=== PATIENT | male | born 1980 | race Caucasian/White ===

== ENCOUNTER 2017-10-26 04:01 | Day surgery (SDC) | payer MEDICARE, MEDICAID ==
[2017-10-26] MEDS ORDERED: cefTRIAXone\\ROCEPHIN 2 GM in Sodium Chloride 0.9% 100 ML IVPB SCH (06:00)
[2017-10-26] MEDS ORDERED: Fentanyl 100 MCG/2 ML VIAL ONE ×2 (06:06)
[2017-10-26] MEDS ORDERED: Iothalamate Meglumine 60% 50 ML VIAL FS ONE (06:40)
[2017-10-26] MEDS ORDERED: Ioversol 68 % 50 ML VIAL ONE (06:46)
--- NOTE | 2017-10-26 07:07 | CON ---
DATE OF CONSULTATION: 10/26/2017 REASON FOR CONSULT: Foreign body in penis, self-inflicted. HISTORY OF PRESENT ILLNESS: Mr. Cheema is a 37-year-old male with history of schizophrenia, history of self injuries, multiple, suicidal behavior who lives in [facility]. He presented to [facility] emergency room due to symptoms of dysuria. Upon talking to the mother via the phone, patient has recurrent behavior of attention seeking of foreign body insertion. He has previous history of swallowing multiple trash bags, which required endoscopic removal back in 03/2017. The patient himself states that he has put foreign bodies in his penis on multiple occasions. He states that this is the 7th time and has been treated in the past in the [facility]. There is a history of suprapubic tube by Dr. Wilkins 3 years ago, which was subsequently removed. Per patient, he is doing this for attention seeking behavior. There is no urinary retention, patient presented with dysuria. Records review from [facility] demonstrating normal creatinine. Urinalysis demonstrates microscopic hematuria, pyuria and few bacteria; however, no nitrites. There is no history of fever, white count of 9, hemoglobin of 14. A CT of the abdomen and pelvis stone protocol was obtained at [facility], which demonstrated no hydronephrosis, no ureteral renal calculi. There is some mild bladder wall thickening. There is a linear density that extends from the bladder to the penile urethra suspicious for metallic foreign body, the distal and does extend into the bladder, which abuts the bladder mucosa; however, with no obvious perforation. There is no free fluid in the abdomen. PAST MEDICAL HISTORY: Basal cell carcinoma of the left anabaptism, which causes constipation, schizophrenia, sinus bradycardia, suicide behavior and self- inflicted injury, recurrence, hypothyroidism, hyperlipidemia. PAST SURGICAL HISTORY: Appendectomy, left inguinal hernia repair, history of suprapubic tube, history of multiple retrieval of foreign body self-inflicted into the penile urethra per patient, usually paper clips. ALLERGIES: IODINE, LATEX, MORPHINE, hives. PHYSICAL EXAMINATION:VSS ; card table attendant bedside HEENT is unremarkable GENERAL: Patient is resting comfortably, card table attendant at bedside. ABDOMEN: Soft. There is no rigidity, no rebound. GENITOURINARY: There is no foreign body extending to the meatus. There is no blood per meatus. Testes are descended. EXTREMITIES: No cyanosis, clubbing or edema. PERTINENT LABORATORY DATA: Creatinine 0.8, white count 9, hemoglobin 14, platelet 171, 100 of protein, small leukocyte, 10-19 RBCs, 10-19 WBCs, few bacteria, negative nitrites. Culture obtained from [facility] pending per my request. A CT of the abdomen and pelvis, which I reviewed myself from [facility] stone protocol, linear density extending into the bladder, foreign body from penile urethra to the bladder with no evidence of perforation. No hydroureteronephrosis. No renal lithiasis. Mild bladder wall thickening. IMPRESSION AND PLAN: Mr. Cheema is a 37-year-old male with history of schizophrenia, history of multiple self-inflicted injuries including swallowing trash bags, multiple penile urethral foreign body insertion, presents with dysuria, CT demonstrating foreign body from the bladder to the proximal penile urethra. Verbal consent obtained via mother to proceed with retrieval of foreign body. Risks and complications were reviewed with mother in detail. LU
--- NOTE | 2017-10-26 07:42 | OP ---
DATE OF PROCEDURE: 10/26/2017 PREOPERATIVE DIAGNOSES: A 37-year-old male with history of schizophrenia, history of multiple recurrent self-inflicted injuries. POSTOPERATIVE DIAGNOSES: Foreign body insertion per urethra. PROCEDURE: Cystoscopy, urethral dilation, retrieval of metallic foreign body SURGEON: Stephanie Godwin D.O. ANESTHESIA: General. COMPLICATIONS: None apparent. DISPOSITION: Recovery room in stable condition. INDICATIONS FOR THE PROCEDURE AND HISTORY: Mr. Cheema is a 37-year-old male with history of multiple self-inflicted behavior. Per mother and patient, he has done this approximately 5-7 times. This has been previously retrieved with history of multiple paper clips per his urethra in [place] in the [facility] region. He presents to [facility] due to dysuria. CT demonstrated a foreign body traversing the penile urethra to the level of the bladder with no evidence of bladder perforation. When asked why he does this, he states that this is to seek attention. The patient not in urinary retention. Urine is pink tinged.. He is afebrile. Informed consent obtained via mother for a foreign body retrieval. DESCRIPTION OF THE PROCEDURE: After an informed consent is signed, the patient is taken to the operating room, placed in a dorsal lithotomy position with the genital area prepped and draped in the usual surgical sterile fashion. A 21- Stateless cystoscope was utilized. At the level of the distal penile urethra, there was evidence of multiple false passages consistent with his previous history. There was some resistance passing a 22 Stateless cystoscope. Therefore, I just transitioned to a 17F I was able to pass this level of the mid penile urethra; however, it was somewhat tight. I placed a 0.35 center wire to the level of the bladder confirmed on fluoroscopy. Subsequently, I dilated his urethra from 14 to 22 over the Super Stiff guidewire without difficulty. Subsequently passed a 22-Stateless cystoscope to the level of the bladder. The bladder demonstrated some irritative changes with no stones and no evidence of a bladder defect was noted. The prostatic urethra was coapting. The wire traversed from bladder to the level of the proximal penile urethra. Using a grasper, I was able to retrieve it intact atraumatically. Repeat cystoscopy performed demonstrating it was successfully retrieved with no further nidus. I did not want to leave an indwelling Vanegas catheter in this patient, as he will most likely pull it out. With the working wire removed, I was able to pass a 16 Stateless coude without any resistance. Bladder was completely emptied. He tolerated the procedure well. He will be discharged with a course of antibiotic therapy. I will inform mother. LU
[2017-10-26] MEDS ORDERED: Meperidine HCl/PF 25 MG/ML VIAL ONE (07:48)
[2017-10-26] MEDS ORDERED: Phenazopyridine HCl 97.5 MG TABLET ONE (07:49)
--- NOTE | 2017-10-26 07:59 | RAD ---
RETROGRADE IVP: Date: 10/26/17 HISTORY: Foreign body removal. FINDINGS/IMPRESSION: Anterior views of the abdomen were submitted for interpretation. These are limited fluoroscopic views . The first image shows a linear radiopaque foreign body overlying the pelvis, which is not seen on t he second radiograph. POS: [facility]
[2017-10-26] MEDS ORDERED: Propofol 200 MG/20 ML VIAL ONE (13:42)
[2017-10-26] MEDS ORDERED: Succinylcholine Chloride 20 MG/ML 10 ml SYRINGE FS ONE (13:42)
[2017-10-26] MEDS ORDERED: Lidocaine 1% PF 5 ML VIAL ONE (13:42)
[2017-10-26] MEDS ORDERED: Ondansetron HCl/PF 4 MG/2 ML Vial ONE (13:42)
[2017-10-26] MEDS ORDERED: ePHEDrine/0.9% NaCl/PF SYRINGE 50 mg/10 ml ONE (13:42)
[2017-10-26] MEDS ORDERED: Dexamethasone 20 MG/5 ML VIAL ONE (13:42)
[2017-10-26] MEDS ORDERED: Glycopyrrolate 0.2 MG/ML 5 ML SYRINGE ONE (13:42)
== END 2017-10-26 10:45 | disposition home or self-care (01) ==
LOC: ERS 04:01 → SDC/OP 06:30
PROVIDERS: ATTEND Urology
PROC: 0TCD8ZZ Extirpation of Matter from Urethra, Via Natural or Artificial Opening Endoscopic (ICD-10-PCS; principal; 2017-10-26)
DX: T19.0XXA Foreign body in urethra, initial encounter (principal); Z91.5 Personal history of self-harm; E03.9 Hypothyroidism, unspecified; E78.5 Hyperlipidemia, unspecified; C44.319 Basal cell carcinoma of skin of other parts of face; K59.00 Constipation, unspecified; J45.909 Unspecified asthma, uncomplicated; Z88.5 Allergy status to narcotic agent; Z91.041 Radiographic dye allergy status; Z91.040 Latex allergy status; Z88.8 Allergy status to other drugs, medicaments and biological substances; Z90.49 Acquired absence of other specified parts of digestive tract; Z98.890 Other specified postprocedural states; Z87.891 Personal history of nicotine dependence
CPT/HCPCS: 52310; 74420; 88300; 96374; C1758; C1769; J0696; J1100; J2001; J2175; J2405; J2704; J3010; J7050; Q9961; Q9967

== ENCOUNTER 2017-11-10 03:25 | Emergency (ER) | payer MEDICARE, MEDICAID ==
[2017-11-10 04:30] LABS: #Basophils 0.1 thou/uL (0.0-0.2); #Eosinphils 0.2 thou/uL (0.0-0.7); #Lymphocytes 2.1 thou/uL (1.20-3.40); #Monocytes 0.8 thou/uL (0.11-0.59); #Neutrophils 4.9 thou/uL (1.40-6.50); %Basophils 0.8 % (0.0-1.0); %Eosinophils 1.9 % (0.0-10.0); %Lymphocytes 25.9 % (21.0-51.0); %Monocytes 9.6 % (0.0-10.0); %Neutrophils 61.9 % (42.0-75.0); Hemoglobin 14.9 g/dL (14.0-18.0); Mean Corpuscular HGB CONC 35.1 g/dL (32.0-36.0); Mean Corpuscular Hemoglobin 31.9 pg (27.0-31.0); Mean Corpuscular Volume 90.8 fl (80.0-94.0); Mean Platelet Volume 7.8 fL (7.4-10.4); Platelet Count 199 thou/uL (130-400); RBC Distribution Width 11.7 % (11.5-14.5); Red Blood Cell (RBC) Count 4.68 mill/uL (4.70-6.10); White Blood Cell (WBC) Count 7.9 thou/uL (4.8-10.8)
[2017-11-10 04:37] LABS: INR-International Normal Ratio 1.1; Prothrombin Time 14.1 SEC (12.0-14.7)
[2017-11-10] MEDS ORDERED: Adacel (T-DAP) 0.5 ML VIAL ONE (06:32)
--- NOTE | 2017-11-10 07:43 | RAD ---
SINGLE VIEW OF THE ABDOMEN: COMPARISON: None. HISTORY: Urethral foreign body. FINDINGS: A single view of the abdomen shows a nonspecific, nonobstructed bowel gas pattern. No radiopaque for eign body is seen in the abdomen or in the penis. The bones are unremarkable. IMPRESSION: Unremarkable exam. POS: [facility]
--- NOTE | 2017-11-10 08:05 | CT ---
PRELIMINARY REPORT/[facility]/EMERGENCY AFTER HOURS PROCEDURE: EXAM: CT Abdomen and Pelvis Without Intravenous Contrast EXAM DATE/TIME: Exam ordered 11/10/2017 5:18 AM CLINICAL HISTORY: 37 years old, male; Pain; Abdominal pain; Localized; Lower; Prior surgery; Patient HX: Pt is a 37 yea r old male with a history of schizophrenia, self-injurious behavior and recent surgery for urethral f oreign body removal. Pt states that early this morning, he placed multiple small wires into his ureth ra. Pt states that he does this "for pleasure". TECHNIQUE: Axial computed tomography images of the abdomen and pelvis without intravenous contrast. Coronal reformatted images were created and reviewed. COMPARISON: No relevant prior studies available. FINDINGS: Lower thorax: There is subpleural atelectasis of the dependent portions of the lungs. ABDOMEN: Liver: The liver is within normal limits for this noncontrast study. Gallbladder and bile ducts: The gallbladder is normal. There is no evidence of biliary ductal dilatio n. No calcified stones. Pancreas: The pancreas appears normal. No ductal dilation. Spleen: The spleen is normal. Adrenals: The adrenal glands are normal. Kidneys and ureters: The kidneys appear normal. No obstructing stones. No hydronephrosis. Stomach and bowel: The stomach is normal. The duodenum is unremarkable. There is moderate colonic constipation. No obstruction. No mucosal thickening. Appendix: There has been an appendectomy. PELVIS: Bladder: No urethral foreign bodies are identified at this time. The bladder is normal. No stones. Reproductive: Unremarkable as visualized. ABDOMEN and PELVIS: Intraperitoneal space: Normal. No free air. No significant fluid collection. Bones/joints: No acute fracture. No dislocation. Soft tissues: Normal. Vasculature: Normal. No abdominal aortic aneurysm. Lymph nodes: Normal. No enlarged lymph nodes. IMPRESSION: No urethral foreign bodies are identified at this time. Thank you for allowing us to participate in the care of your patient. Dictated and Authenticated by: Markos Cazares MD 11/10/2017 5:47 AM Central Time ([place] & [place]) FINAL REPORT CT ABDOMEN AND PELVIS WITHOUT CONTRAST: I agree with the preliminary report given by Dr. Markos Cazares of [facility]. POS: [facility]
== END 2017-11-10 07:07 | disposition home or self-care (01) ==
LOC: ERS 03:25
DX: T19.0XXA Foreign body in urethra, initial encounter (principal); J45.909 Unspecified asthma, uncomplicated; E55.9 Vitamin D deficiency, unspecified; E78.5 Hyperlipidemia, unspecified; E03.9 Hypothyroidism, unspecified; K59.00 Constipation, unspecified; F25.9 Schizoaffective disorder, unspecified; F17.210 Nicotine dependence, cigarettes, uncomplicated
CPT/HCPCS: 36415; 74018; 74176; 85025; 85610; 86850; 86900; 86901; 90715; 93005; 99406

== ENCOUNTER 2018-09-15 05:48 | Emergency (ER) | payer MEDICARE, MEDICAID ==
[2018-09-15] MEDS ORDERED: Fentanyl 100 MCG/2 ML VIAL ONE (06:39)
[2018-09-15] MEDS ORDERED: Midazolam HCl 2 mg/2 ml Vial ONE (06:39)
[2018-09-15] MEDS ORDERED: Iothalamate Meglumine 60% 50 ML VIAL FS ONE (06:55)
[2018-09-15 07:33] LABS: Anion Gap 11 mmol/L (10-20); BUN (Urea Nitrogen) 17 mg/dL (8.9-20.6); Calc. Creatinine Clearance 0 mL/min (70-130); Calcium 10.2 mg/dL (7.8-10.44); Carbon Dioxide 30 mmol/L (22-29); Chloride 106 mmol/L (98-107); Estimated GFR-MDRD Greater than 90; Glucose 94 mg/dL (70-105); Potassium 4.3 mmol/L (3.5-5.1); Sodium 143 mmol/L (136-145)
--- NOTE | 2018-09-15 09:07 | RAD ---
TWO FLUOROSCOPIC IMAGES OF THE PELVIS CYSTOSCOPY: History: Patient with history of foreign body retrieval. FINDINGS/IMPRESSION: Provided fluoroscopic images demonstrate radiopaque catheter overlying the pelvis related to Vanegas ca theter. No radiopaque or metallic foreign bodies are seen overlying the pelvis on provided images. Co rrelation with intraoperative findings is recommended. POS: [facility]
--- NOTE | 2018-09-15 12:46 | CON ---
DATE OF CONSULTATION: 09/15/2018 HISTORY OF PRESENT ILLNESS: Mr. Cheema is a 37-year-old male with history of schizophrenia, history of multiple self-mutilating injuries resident of [facility] previously seen in September 2017, as he has a history of multiple self-destructive behavior /attention-seeking behavior by foreign body insertion. He has previously had history of swallowing trash bags, requiring endoscopic removal back in March 2017. He has on multiple occasions inserted paper clips in his urethra for attention-seeking behavior. When I saw him in September that was [facility] in [facility]. Prior history of suprapubic tube [place] [address] Wilkins. I saw the patient two months ago at [facility], which he again inserted a paper clip in urethra, which I was able to remove it at bedside. He presents this morning again inserting a paper clip in his urethra. He continues to knowledge his self mutilating behavior, for attention seeking. He is been fully informed regarding repercussions of developing stricture disease, impotence, sepsis, morbidity associated with his behavior. Despite acknowledging this behavior he continues to do so. 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 PAST MEDICAL HISTORY: Basal cell carcinoma of the mosque, history of constipation, schizophrenia, suicide behavior, self-inflicted injury recurrent, hypothyroidism , hyperlipidemia. PAST SURGICAL HISTORY: Appendectomy, left inguinal hernia repair, history of suprapubic tube, history of multiple retrieval of foreign body self-inflicted into the penile urethra, usually a paperclip. ALLERGIES: TO IODINE, LATEX, MORPHINE, CAUSING HIVES. PHYSICAL EXAMINATION: GENERAL: The patient appears to be in no acute distress. ER doctor and nurse at bedside. HEENT: Unremarkable. HEART: Regular rate. LUNGS: Clear. ABDOMEN: Soft, no rigidity, no rebound. EXTREMITIES: No cyanosis, clubbing, or edema. His penile meatus is inspected which demonstrates no blood at the meatus per se. I was able to feel the foreign body along the course of his distal penile urethra. With some manipulation, I was able to clyde the tip of the paperclip out of his meatus. Multiple viscous lidocaine was injected per urethra. However, due to a proximal coil of the paperclip, I am unable to retrieve it locally today. Hemostat was placed at the tip of the paper clip to prevent distal migration. As I am unable to retrieve this at the bedside, we will go to the OR for cysto-retrieval of foreign body. IMPRESSION AND PLAN: 1. Gerry is a 37-year-old male with self-destructive behavior, history of schizophrenia. 2. History of multiple self-inflicted destructive behavior including swallowing trash bags, multiple insertions per urethra of paperclip. As I am unable to retrieve it locally, we will proceed with OR for cysto foreign body removal. 3. Broad-spectrum antibiotics on-call to OR. A formal letter will be sent to [facility] administrator regarding his behavior, he cannot have a job that allows him access to sharp objects, office supplies which he can manipulate and enable his self-destructive behavior. Job ID: [id number] [facility]
--- NOTE | 2018-09-15 12:54 | OP ---
DATE OF PROCEDURE: 09/15/2018 PREOPERATIVE DIAGNOSES: A 37-year-old male with history of schizophrenia, history of multiple recurrent self-inflicted urethra injury with a paperclip. This is likely about his 10th time. POSTOPERATIVE DIAGNOSES: A 37-year-old male with history of schizophrenia, history of multiple recurrent self-inflicted urethra injury with a paperclip. This is likely about his 10th time. PROCEDURES PERFORMED: Cystoscopy, retrieval of foreign body, i.e., paperclip, 18-Slovenian [place] tip Vanegas catheter placement over guidewire to leg bag. ANESTHESIA: LMA. COMPLICATIONS: None apparent. DISPOSITION: To recovery room in stable condition. Specimen: Foreign body. A paperclip INDICATIONS FOR PROCEDURE AND HISTORY: Mr. Cheema is a 37-year-old male with psychiatric history as above, he has previously swallowed garbage bags requiring endoscopic removal, inserted foreign body in his rectum, and he has also, on multiple occasions, inserted a paperclip in his urethra. I had seen the patient previously at [facility] and subsequently at [facility] with retrieval of a paperclip. On his last event a few months ago, I was able to retrieve it at bedside without significant issues. On today's exam, I attempted to remove his paperclip at bedside; however, there appears to be a coil loop in the proximal portion. Therefore, I did not forcibly engage. Indications for surgical intervention were reviewed. Risks and complications and ongoing risk of impotence, recurrent stricture, urosepsis were reviewed with the patient on multiple occasions. He verbalizes understanding, however, continues to proceed with self-inflicted injury. DESCRIPTION OF PROCEDURE: After an informed consent was signed, the patient was taken to the operating room, placed in a dorsal lithotomy position with the genital area prepped and draped in the usual surgical sterile fashion. In the emergency room, I was able to see the tip of the paperclip at the meatus and thus I put a hemostat on it to prevent retraction. The genital area was formally prepped and draped and broad-spectrum antibiotics were provided. A 21-Slovenian cystoscope was utilized for cystoscopy. Although there were multiple proximal penile bulbar urethral strictures, I was able to negotiate the 21-Slovenian cystoscope without significant trauma. I was able to see the paperclip, and make my way into the bladder. A 0.035 Super Stiff wire was left in the bladder for safety access to his bladder. I then re-staged his urethra. The proximal coil of the paperclip had an angle pre-existing, which has perforated his urethra at 8 o'clock position at the level of the bulbar urethra. I attempted with a flexible grasper forceps, however, I was unable to retrieve. It was very challenging to remove this paperclip as it has hooked into his urethra. I did transition to a rigid grasper with a 12- degree lens. Multiple attempts were performed gently to remove this, however, due to the hooked portion perforating the bulbar urethra, I was unable to retrieve it. I subsequently was able to retrieve it intact as minimally traumatic as possible by compensating for the angle of the paperclip with the cystoscope and was able to subsequently remove it intact. Restaging cystoscopy demonstrated no other foreign body. Fluoroscopy was obtained demonstrating no foreign fragmented metallic clip of concern. Restaging demonstrates the perforated region at the 8 o'clock position bulbar urethra. No other perforation was seen. I did again staged his bladder demonstrating no other foreign body, which was confirmed on fluoroscopy as well. Although, I would prefer not to leave any foreign body in this patient for obvious reasons, as there was perforation of the urethra and risk of infection, possible abscess, an 18-Slovenian [place] tip Vanegas catheter was placed over guidewire, which passed without difficulty. [place] red tinged urine was noted. He was to be discharged with Levaquin 750 mg x10 days. We will arrange followup for catheter removal next Thursday. Job ID: [id number] [facility]
[2018-09-15] MEDS ORDERED: Lidocaine 1% PF 5 ML VIAL ONE (21:39)
[2018-09-15] MEDS ORDERED: Ondansetron PF 4 MG/2 ML Vial ONE (21:39)
[2018-09-15] MEDS ORDERED: Dexamethasone 20 MG/5 ML VIAL ONE (21:39)
[2018-09-15] MEDS ORDERED: PROPOFOL 200 MG/20 ML VIAL ONE (21:39)
== END 2018-09-15 06:58 | disposition admitted as inpatient to this hospital (09) ==
LOC: ERS 05:48
DX: T19.4XXA Foreign body in penis, initial encounter (principal); E03.9 Hypothyroidism, unspecified; E78.5 Hyperlipidemia, unspecified; J45.909 Unspecified asthma, uncomplicated; F25.9 Schizoaffective disorder, unspecified; F17.210 Nicotine dependence, cigarettes, uncomplicated; Z79.899 Other long term (current) drug therapy
CPT/HCPCS: 74420; 80048; 88300; 96374; 99285; C1769; 36415; J1100; J1956; J2001; J2250; J2405; J2704; J3010; Q9961

== ENCOUNTER 2022-08-04 11:20 | Day surgery (SDC) | payer MEDICARE, MEDICAID ==
[2022-07-31 09:37] VITALS: BMI 25.7
[2022-08-04] MEDS ORDERED: Midazolam HCl 2 mg/2 ml Vial ONE (12:18)
[2022-08-04] MEDS ORDERED: FENTANYL 50 MCG/ML 1 ML VIAL ONE (12:18)
[2022-08-04] MEDS ORDERED: Ondansetron PF 4 MG/2 ML Vial ONE (12:30)
[2022-08-04] MEDS ORDERED: PROPOFOL 200 MG/20 ML VIAL ONE (12:30)
[2022-08-04] MEDS ORDERED: Ketorolac Tromethamine 30 MG/ML VIAL ONE (12:30)
== END 2022-08-04 14:18 | disposition home or self-care (01) ==
LOC: MRI 11:20
PROVIDERS: ATTEND Family Medicine
DX: M43.17 Spondylolisthesis, lumbosacral region (principal); M51.37 Other intervertebral disc degeneration, lumbosacral region; M47.817 Spondylosis without myelopathy or radiculopathy, lumbosacral region; M48.07 Spinal stenosis, lumbosacral region; M51.36 Other intervertebral disc degeneration, lumbar region; M47.816 Spondylosis without myelopathy or radiculopathy, lumbar region; E78.5 Hyperlipidemia, unspecified; E03.9 Hypothyroidism, unspecified; E55.9 Vitamin D deficiency, unspecified; Z79.890 Hormone replacement therapy; Z79.899 Other long term (current) drug therapy; Z88.5 Allergy status to narcotic agent; Z88.8 Allergy status to other drugs, medicaments and biological substances; Z91.040 Latex allergy status; Z91.041 Radiographic dye allergy status
CPT/HCPCS: 72148; J1885; J2250; J2405; J2704; J3010